=== PATIENT | male | born 1990 | race Caucasian/White ===

== ENCOUNTER 2016-12-20 07:51 | Inpatient (IN) | payer OTHER ==
[~2016-12-20] VITALS: Ht 185.4 cm; Wt 67.9 kg
[~2016-12-20 07:51] MED LIST: MOTRIN600 MG PO; NO HOME MEDS; NO MEDICATIONS; NOHOMEMEDS; XANAX0.5 MG PO; ZOFRAN4 MG PO
[2016-12-20 08:14] LABS: CREATININE 2.6 mg/dL (0.6-1.3); POTASSIUM 3.9 mEq/L (3.7-5.4)
[2016-12-20 08:17] LABS: HEMATOCRIT 53.9 % (38.0-50.0); MCHC 35.8 G/DL (30.0-36.0); MCV 86.5 FL (86-99); PLATELET COUNT 418 K/uL (156-360); RBC DIS.WIDTH-CV 12.2 % (11.8-14.6); RBC DIS.WIDTH-SD 38.4 % (39-53); RED BLOOD COUNT 6.23 M/uL (4.00-5.50); WHITE BLOOD COUNT 22.6 K/uL (4.1-10.2)
[2016-12-20 08:27] LABS: CHLORIDE 70 mEq/L (99-109); POTASSIUM 4.4 mEq/L (3.7-5.4); SODIUM 137 mEq/L (136-147)
[2016-12-20 08:30] LABS: GLUCOSE 112 mg/dL (70-99)
[2016-12-20 08:31] LABS: ANION GAP 31 MEQ/L (2-14); TOTAL BILIRUBIN 2.3 mg/dL (0.0-1.0)
[2016-12-20 08:33] LABS: ALKALINE PHOSPHATASE 81 IU/L (3-129); GFR ESTIMATE (CALCULATED) 27 mL/min/; SERUM ETHYL ALCOHOL < 10 mg/dL
[2016-12-20 08:35] LABS: DIRECT BILIRUBIN 0.7 mg/dL (0.0-0.3); UREA NITROGEN (BUN) 64 mg/dL (9-23)
[2016-12-20 10:00] LABS: CREATINE KINASE 1730 IU/L (1-294)
[2016-12-20 10:04] LABS: MAGNESIUM 2.5 mg/dL (1.3-2.7)
[2016-12-20 10:57] LABS: ADD MIUA? YES; BILIRUBIN NEGATIVE; BLOOD NEGATIVE; COLOR YELLOW ((YELLOW)); GLUCOSE (STRIP) NEGATIVE; KETONES NEGATIVE; LEUKOCYTES NEGATIVE; NITRITE NEGATIVE; PROTEIN (STRIP) 100; SPECIFIC GRAVITY 1.021 (1.000-1.030); UROBILINOGEN 0.2 MG/DL (0.2-1.0)
[2016-12-20 10:59] VITALS: BP 131/66
[2016-12-20 11:06] LABS: BACTERIA RARE /HPF; EPITHELIAL CELLS RARE /HPF; HYALINE CASTS 30-40 /LPF; MUCUS TRACE /LPF; RED BLOOD CELLS 0-5 /HPF (0-5)
[2016-12-20 11:07] LABS: AMPHETAMINE NEGATIVE (500 ng/mL); BARBITURATES NEGATIVE (200 ng/mL); BENZODIAZEPINES NEGATIVE (150 ng/mL); COCAINE NEGATIVE (150 ng/mL); INTERNAL CONTROLS VALID? YES; METHADONE NEGATIVE (200 ng/mL); METHAMPHETAMINE NEGATIVE (500 ng/mL); OPIATES (MORPHINE) PRESUMPTIVE POSITIVE (100 ng/mL); OXYCODONE NEGATIVE (100 ng/mL); PHENCYCLIDINE NEGATIVE (25 ng/mL); PROPOXYPHENE NEGATIVE (300 ng/mL); THC CANNABINOIDS PRESUMPTIVE POSITIVE (50 ng/mL); TRICYCLIC ANTIDEPRESSANTS NEGATIVE (300 ng/mL)
[2016-12-20 11:08] LABS: ADD MEDTOX COMMENT Y
[2016-12-20 12:09] LABS: ANTI-HEPATITIS A VIRUS (IGM) Nonreactive; ANTI-HEPATITIS B CORE (IGM) Nonreactive; HBC IgM INDEX 0.12; HIV INDEX 0.11; HIV-1/2 AB/AG COMBO Nonreactive; HPCA INDEX 14.32
[2016-12-20 13:51] LABS: EOSINOPHIL (%) 0 % (0-5); IMMATURE GRANULOCYTE (%) 0.4 % (0.0-0.7); IMMATURE GRANULOCYTE COUNT 0.1 K/uL; INSTRUMENT ABS NEUTROPHIL CT 17.7 K/uL; LYMPHOCYTE COUNT 2.4 K/uL (1.0-2.8); MONOCYTE (%) 10.5 % (3-12); MONOCYTE COUNT 2.4 K/uL (0-0.8); NEUTROPHIL (%) 78.3 % (45-76); NEUTROPHIL COUNT 17.7 K/uL (1.8-6.4)
[2016-12-20 14:04] LABS: GIANT PLATELETS 1+; LYMPHOCYTES 6.1 % (15.0-45.0); MEGAKARYOCYTE 0; PLAT.SUFFICIENCY ADEQUATE; PLATELET CLUMPS PRESENT - PLATELET COUNT APPEARS ADQ.; SMUDGE CELLS 0
[2016-12-20 14:05] LABS: SEG.NEUTROPHILS 77.8 % (46.0-76.0)
[2016-12-20 15:16] VITALS: BP 132/68
[2016-12-20 19:47] VITALS: BP 137/71
[2016-12-20 23:46] VITALS: BP 143/66
[2016-12-21 03:50] VITALS: BP 133/75
[2016-12-21 07:26] LABS: ALKALINE PHOSPHATASE 55 IU/L (3-129); ANION GAP 10 MEQ/L (2-14); CHLORIDE 90 MEQ/L (99-109); GLUCOSE 98 mg/dL (70-99); SAMPLE HEMOLYSIS CHECK 0; SAMPLE ICTERIC CHECK 0; SAMPLE LIPEMIA CHECK 0; SODIUM 136 MEQ/L (136-147); TOTAL BILIRUBIN 2.3 MG/DL (0.0-1.0); UREA NITROGEN (BUN) 44 mg/dL (9-23)
[2016-12-21 07:27] LABS: GFR ESTIMATE (CALCULATED) 43 mL/min/
[2016-12-21 07:28] LABS: CREATINE KINASE 1065 IU/L (1-294)
[2016-12-21 07:29] VITALS: BP 129/77
[2016-12-21 07:35] LABS: EOSINOPHIL (%) 0.1 % (0-5); HEMATOCRIT 42.6 % (38.0-50.0); IMMATURE GRANULOCYTE (%) 0.3 % (0.0-0.7); INSTRUMENT ABS NEUTROPHIL CT 9.4 K/uL; LYMPHOCYTE COUNT 2.9 K/uL (1.0-2.8); MCH 30.6 PG (29.0-34.0); MCHC 34.7 G/DL (30.0-36.0); MCV 88.2 FL (86-99); MONOCYTE COUNT 1.5 K/uL (0-0.8); NEUTROPHIL (%) 67.8 % (45-76); NEUTROPHIL COUNT 9.4 K/uL (1.8-6.4); RBC DIS.WIDTH-CV 11.9 % (11.8-14.6); RBC DIS.WIDTH-SD 38.2 % (39-53)
[2016-12-21 07:36] LABS: RED BLOOD COUNT 4.83 M/uL (4.00-5.50); WHITE BLOOD COUNT 13.9 K/uL (4.1-10.2)
[2016-12-21 11:04] LABS: MEAN PLAT.VOLUME 10.8 uM^3 (9.0-12.4)
[2016-12-21 11:05] LABS: PLATELET COUNT 243 K/uL (156-360)
[2016-12-21 11:19] VITALS: BP 132/78
== END 2016-12-21 15:38 | disposition left against medical advice (07) | DRG 894 ==
LOC: EME 07:51 → 5SOUTH 09:23 → EDOF 09:23 → 5SOUTH 10:50
PROVIDERS: Emergency Medicine; Hospitalist
DX: F19.10 Other psychoactive substance abuse, uncomplicated (principal); F11.129 Opioid abuse with intoxication, unspecified; N17.9 Acute kidney failure, unspecified; E86.0 Dehydration; M62.82 Rhabdomyolysis; E83.51 Hypocalcemia; B19.20 Unspecified viral hepatitis C without hepatic coma
CPT/HCPCS: 71010; 74176; 80047; 80048; 80053; 80074; 80076; 81003; 82550; 82570; 83735; 84300; 84999; 85025; 86703; 86803; 87651 90; 99281; 99284; G0480; J0574; J0610; J2060; J2405; J3480; J7030; J7040; J7050

== ENCOUNTER 2016-12-22 12:29 | Observation (INO) | payer OTHER ==
[~2016-12-22] VITALS: Ht 185.4 cm; Wt 69.9 kg
[2016-12-22 13:51] LABS: HEMATOCRIT 44.5 % (38.0-50.0); MCH 30.5 PG (29.0-34.0); MCHC 33.9 G/DL (30.0-36.0); MCV 89.9 FL (86-99); MEAN PLAT.VOLUME 10.9 uM^3 (9.0-12.4); PLATELET COUNT 248 K/uL (156-360); RBC DIS.WIDTH-CV 11.9 % (11.8-14.6); RBC DIS.WIDTH-SD 38.7 % (39-53); RED BLOOD COUNT 4.95 M/uL (4.00-5.50); WHITE BLOOD COUNT 14.5 K/uL (4.1-10.2)
[2016-12-22 14:08] LABS: CHLORIDE 94 mEq/L (99-109); POTASSIUM 3.4 mEq/L (3.7-5.4); SODIUM 137 mEq/L (136-147)
[2016-12-22 14:10] LABS: GLUCOSE 105 mg/dL (70-99)
[2016-12-22 14:11] LABS: ANION GAP 9 MEQ/L (2-14)
[2016-12-22 14:13] LABS: SERUM ETHYL ALCOHOL < 10 mg/dL
[2016-12-22 14:14] LABS: ALKALINE PHOSPHATASE 60 IU/L (3-129)
[2016-12-22 14:15] LABS: UREA NITROGEN (BUN) 30 mg/dL (9-23)
[2016-12-22 14:16] LABS: GFR ESTIMATE (CALCULATED) > 59 mL/min/; TOTAL BILIRUBIN 1.8 mg/dL (0.0-1.0)
[2016-12-22 14:17] LABS: LIPASE 20 U/L (1.0-51.0); TOTAL CK 1080 IU/L (1-294)
[2016-12-22 14:18] LABS: CREATINE KINASE 1080 IU/L (1-294)
[2016-12-22 14:24] LABS: CK-MB 0.9 ng/mL (0.0-4.9)
[2016-12-22 15:07] LABS: ADD MIUA? NO; BILIRUBIN NEGATIVE; BLOOD NEGATIVE; COLOR YELLOW ((YELLOW)); GLUCOSE (STRIP) NEGATIVE; KETONES NEGATIVE; LEUKOCYTES NEGATIVE; NITRITE NEGATIVE; PROTEIN (STRIP) NEGATIVE; SPECIFIC GRAVITY 1.021 (1.000-1.030); UCUL ADDED? NO
[2016-12-22 15:24] LABS: ADD MEDTOX COMMENT Y; AMPHETAMINE NEGATIVE (500 ng/mL); BARBITURATES NEGATIVE (200 ng/mL); BENZODIAZEPINES PRESUMPTIVE POSITIVE (150 ng/mL); COCAINE NEGATIVE (150 ng/mL); INTERNAL CONTROLS VALID? YES; METHADONE NEGATIVE (200 ng/mL); METHAMPHETAMINE NEGATIVE (500 ng/mL); OPIATES (MORPHINE) PRESUMPTIVE POSITIVE (100 ng/mL); OXYCODONE NEGATIVE (100 ng/mL); PHENCYCLIDINE NEGATIVE (25 ng/mL); PROPOXYPHENE NEGATIVE (300 ng/mL); THC CANNABINOIDS PRESUMPTIVE POSITIVE (50 ng/mL); TRICYCLIC ANTIDEPRESSANTS NEGATIVE (300 ng/mL)
[2016-12-22 16:16] LABS: BENZODIAZEPINES, URINE SCREEN POSITIVE (200 ng/mL)
[2016-12-22 17:41] VITALS: BP 143/94
[2016-12-22 19:20] VITALS: BP 118/62
[2016-12-22 23:55] VITALS: BP 138/78
[2016-12-23 04:18] VITALS: BP 126/68
[2016-12-23 06:10] LABS: ALKALINE PHOSPHATASE 44 IU/L (3-129); ANION GAP 3 MEQ/L (2-14); CREATINE KINASE 581 IU/L (1-294); DIRECT BILIRUBIN 0.3 mg/dL (0.0-0.3); GFR ESTIMATE (CALCULATED) > 59 mL/min/; GLUCOSE 84 mg/dL (70-99); POTASSIUM 3.8 MEQ/L (3.7-5.4); SAMPLE HEMOLYSIS CHECK 0; SAMPLE ICTERIC CHECK 0; SAMPLE LIPEMIA CHECK 0; SODIUM 137 MEQ/L (136-147); UREA NITROGEN (BUN) 19 mg/dL (9-23)
[2016-12-23 06:13] LABS: CHLORIDE 104 MEQ/L (99-109); TOTAL BILIRUBIN 1.3 MG/DL (0.0-1.0)
[2016-12-23 07:34] VITALS: BP 147/80
[2016-12-23 10:53] VITALS: BP 146/61
== END 2016-12-23 11:39 | disposition home or self-care (01) ==
LOC: EME 12:29 → EDOF 16:13 → 5WEST 16:13 → EDOF 16:13 → 5WEST 17:37
PROVIDERS: Emergency Medicine; Internal Medicine
DX: M62.82 Rhabdomyolysis (principal); N17.9 Acute kidney failure, unspecified; E87.6 Hypokalemia; F19.10 Other psychoactive substance abuse, uncomplicated; F12.10 Cannabis abuse, uncomplicated; F17.210 Nicotine dependence, cigarettes, uncomplicated; D72.829 Elevated white blood cell count, unspecified
CPT/HCPCS: 80048; 80053; 80076; 81003; 82550; 82553; 83690; 84999; 85027; 90839; 99281; 99285; G0378; G0480; J7030

== ENCOUNTER 2017-03-05 22:26 | Emergency (ER) | payer OTHER ==
[~2017-03-05] VITALS: Ht 185.4 cm; Wt 70.6 kg
[2017-03-06] MEDS ORDERED: KEFLEX500 MG PO (00:15)
[2017-03-06 00:48] VITALS: BP 99/81
== END 2017-03-06 00:49 | disposition home or self-care (01) ==
LOC: EME 22:26
PROC: 0HQFXZZ Repair Right Hand Skin, External Approach (ICD-10-PCS; principal; 2017-03-06)
DX: S61.411A Laceration without foreign body of right hand, initial encounter (principal); W22.09XA Striking against other stationary object, initial encounter
CPT/HCPCS: 73130; 99281; 99284

== ENCOUNTER 2018-01-10 20:52 | Emergency (ER) | payer OTHER ==
[~2018-01-10] VITALS: Ht 182.9 cm; Wt 70.4 kg
[~2018-01-10 20:52] MED LIST changes: +KEFLEX500 MG PO
[2018-01-10 21:08] VITALS: BP 128/78
== END 2018-01-10 22:06 | disposition home or self-care (01) ==
LOC: EXP 20:52 → EME 20:52 → EXP 22:06
DX: S02.2XXA Fracture of nasal bones, initial encounter for closed fracture (principal); X58.XXXA Exposure to other specified factors, initial encounter
CPT/HCPCS: 70160; 99281; 99283